=== PATIENT | male | born 1945 | race Caucasian/White ===

== ENCOUNTER 2019-06-01 15:22 | Inpatient (IN) ==
[2019-06-01 16:05] LABS: INR 1.5; Prothrombin Time 16.7 Seconds (9.4-12.1)
[2019-06-01] MEDS ORDERED: Aspirin 81 MG TAB.CHEW PO ONE (16:07)
[2019-06-01 16:08] LABS: Activated Partial Thrombo Time 45.3 Seconds (26.0-36.0)
[2019-06-01 16:19] LABS: Basophils # 0.1 K/mcL (0.0-0.2); Basophils % 0.9 %; Eosinophils # 0.2 K/mcL (0.0-0.6); Eosinophils % 3.4 %; Hematocrit 39.7 % (37.5-50.1); Hemoglobin 14.2 g/dL (12.9-16.9); Immature Granulocytes % 0.6 % (0-4); Lymphocytes # 2.1 K/mcL (0.6-4.6); Lymphocytes % 31.2 %; Mean Corpuscular HGB Conc 35.8 g/dL (31.6-35.5); Mean Corpuscular Hemoglobin 33.4 pg (28.0-33.3); Mean Corpuscular Volume 93.4 fL (83.0-100.0); Monocytes # 0.6 K/mcL (0.0-1.3); Monocytes % 8.3 %; Neutrophils # 3.7 K/mcL (1.6-8.9); Platelet Count 163 K/mcL (140-400); Red Blood Count 4.25 M/mcL (4.19-5.50); Red Cell Distribution Width 11.9 % (11.5-14.5); Segmented Neutrophils % 55.6 %; White Blood Count 6.7 K/mcL (4.3-11.1)
[2019-06-01 16:22] LABS: BUN/Creatinine Ratio 14 (6-26); Blood Urea Nitrogen 13 mg/dL (8-23); Calcium 9.5 mg/dL (8.6-10.3); Carbon Dioxide 23 mEq/L (23-29); Chloride 101 mEq/L (98-107); Glucose 93 mg/dL (70-105); Osmolality,Calculated 282 (280-300); Sodium 136 mEq/L (136-145); Troponin I 0.06 ng/mL (< 0.04); eGFR For African Americans > 60 (> 60); eGFR For Non-African Americans > 60 (> 60)
[2019-06-01] MEDS ORDERED: Nitroglycerin 1 INCH/GM PACKET TP ONE (17:00)
[2019-06-01] MEDS ORDERED: Naloxone 0.4 MG/ML INJ IVP PRN (17:03)
[2019-06-01] MEDS ORDERED: Ondansetron ODT 4 MG TAB.RAPDIS SL PRN (17:03)
[2019-06-01] MEDS: ALPRAZolam 0.5 MG TABLET PO PRN (22:47)
[2019-06-01] MEDS: Apixaban 5 MG TABLET PO SCH (22:47)
[2019-06-02 05:40] LABS: Basophils % 0.6 %; Eosinophils # 0.4 K/mcL (0.0-0.6); Eosinophils % 5.9 %; Hematocrit 37.9 % (37.5-50.1); Immature Granulocytes % 0.8 % (0-4); Lymphocytes # 1.8 K/mcL (0.6-4.6); Lymphocytes % 28.8 %; Mean Corpuscular HGB Conc 36.9 g/dL (31.6-35.5); Mean Platelet Volume 10.1 fL (9.4-12.4); Monocytes # 0.6 K/mcL (0.0-1.3); Monocytes % 9.5 %; Neutrophils # 3.4 K/mcL (1.6-8.9); Platelet Count 155 K/mcL (140-400); Red Blood Count 4.12 M/mcL (4.19-5.50); Red Cell Distribution Width 11.9 % (11.5-14.5); Segmented Neutrophils % 54.4 %; White Blood Count 6.3 K/mcL (4.3-11.1)
[2019-06-02 06:07] LABS: Troponin I 0.07 ng/mL (< 0.04)
[2019-06-02 06:18] LABS: BUN/Creatinine Ratio 13 (6-26); Blood Urea Nitrogen 12 mg/dL (8-23); Calcium 9.4 mg/dL (8.6-10.3); Carbon Dioxide 24 mEq/L (23-29); Chloride 102 mEq/L (98-107); Glucose 85 mg/dL (70-105); Osmolality,Calculated 285 (280-300); Sodium 138 mEq/L (136-145); eGFR For African Americans > 60 (> 60); eGFR For Non-African Americans > 60 (> 60)
[2019-06-02] MEDS ORDERED: Perflutren Lipid Microsphere 1.3 ML in 0.9 % Sodium Chloride 8.7 ML IVP ONE (09:40)
[2019-06-02] MEDS: Apixaban 5 MG TABLET PO SCH (10:23)
[2019-06-02] MEDS ORDERED: *HR* Heparin 5,000 UNIT/ML VIAL IVP PRN ×2 (12:45)
[2019-06-02] MEDS: Metoprolol XL (24 HR) Succ 50 MG TAB.ER.24H PO SCH (13:36)
[2019-06-02] MEDS: Aspirin 81 MG TAB.CHEW PO SCH (13:36)
[2019-06-02 13:45] LABS: Hematocrit 39.3 % (37.5-50.1); Mean Corpuscular HGB Conc 35.6 g/dL (31.6-35.5); Mean Corpuscular Hemoglobin 34.4 pg (28.0-33.3); Mean Corpuscular Volume 96.6 fL (83.0-100.0); Mean Platelet Volume 10.1 fL (9.4-12.4); Platelet Count 138 K/mcL (140-400); Red Blood Count 4.07 M/mcL (4.19-5.50); Red Cell Distribution Width 11.9 % (11.5-14.5); White Blood Count 6.1 K/mcL (4.3-11.1)
[2019-06-02 13:55] LABS: INR 1.7; Prothrombin Time 19.2 Seconds (9.4-12.1)
[2019-06-02 13:58] LABS: Heparin anti-factor XA UFH 1.65 IU/mL (0.30-0.70)
[2019-06-02 14:16] LABS: Activated Partial Thrombo Time 50.8 Seconds (26.0-36.0)
[2019-06-02] MEDS ORDERED: Heparin 25,000 UNIT/250 ML D5W 25,000 UNIT/250 ML IV.SOLN IVC SCH (22:00)
[2019-06-02] MEDS: Ranolazine 500 MG TAB.ER.12H PO SCH (22:20)
[2019-06-02] MEDS: ALPRAZolam 0.5 MG TABLET PO PRN (22:51)
[2019-06-03 05:19] LABS: Basophils % 0.6 %; Eosinophils # 0.4 K/mcL (0.0-0.6); Eosinophils % 5.5 %; Hematocrit 40.1 % (37.5-50.1); Hemoglobin 14.4 g/dL (12.9-16.9); Immature Granulocytes % 0.4 % (0-4); Lymphocytes # 2.2 K/mcL (0.6-4.6); Lymphocytes % 32.8 %; Mean Corpuscular HGB Conc 35.9 g/dL (31.6-35.5); Mean Corpuscular Hemoglobin 33.6 pg (28.0-33.3); Mean Corpuscular Volume 93.7 fL (83.0-100.0); Mean Platelet Volume 9.9 fL (9.4-12.4); Monocytes # 0.7 K/mcL (0.0-1.3); Neutrophils # 3.4 K/mcL (1.6-8.9); Platelet Count 151 K/mcL (140-400); Red Blood Count 4.28 M/mcL (4.19-5.50); Segmented Neutrophils % 50.7 %; White Blood Count 6.7 K/mcL (4.3-11.1)
[2019-06-03 05:39] LABS: BUN/Creatinine Ratio 15 (6-26); Blood Urea Nitrogen 14 mg/dL (8-23); Calcium 9.1 mg/dL (8.6-10.3); Carbon Dioxide 26 mEq/L (23-29); Chloride 103 mEq/L (98-107); Glucose 97 mg/dL (70-105); Osmolality,Calculated 286 (280-300); Potassium 3.9 mEq/L (3.5-5.1); Sodium 138 mEq/L (136-145); Troponin I 0.06 ng/mL (< 0.04); eGFR For African Americans > 60 (> 60); eGFR For Non-African Americans > 60 (> 60)
[2019-06-03] MEDS: Ranolazine 500 MG TAB.ER.12H PO SCH ×2 (08:33→22:08)
[2019-06-03] MEDS: Isosorbide MONOnitrate (24 HR) 30 MG TAB.ER.24H PO SCH (08:33)
[2019-06-03] MEDS: Aspirin 81 MG TAB.CHEW PO SCH (08:33)
[2019-06-03] MEDS: Metoprolol XL (24 HR) Succ 50 MG TAB.ER.24H PO SCH (08:33)
[2019-06-03] MEDS ORDERED: *HR* Heparin 10,000 UNIT/10 ML VIAL ONE ×3 (10:44→12:00)
[2019-06-03] MEDS ORDERED: Heparin 1,000 UNITS/500 mL 500 ML ONE ×2 (10:45→11:17)
[2019-06-03] MEDS ORDERED: ISOVUE-370 200 ML INFUS..BTL ONE ×2 (10:45→11:17)
[2019-06-03] MEDS ORDERED: 0.9 % Sodium Chloride 1,000 ML ONE ×4 (10:45→11:17)
[2019-06-03] MEDS ORDERED: Nitroglycerin 1,000 MCG/10 ML VIAL IV ONE ×2 (10:45→11:17)
[2019-06-03] MEDS ORDERED: *HR* Midazolam HCl 2 MG/2 ML VIAL ONE (11:38)
[2019-06-03] MEDS ORDERED: Heparin 1,000 UNITS/500 mL 0 ML ONE (12:03)
[2019-06-03] MEDS ORDERED: Acetaminophen 325 MG TABLET PO PRN (12:38)
[2019-06-03] MEDS ORDERED: Apixaban 5 MG TABLET PO SCH (21:00)
[2019-06-03] MEDS: Apixaban 5 MG TABLET PO SCH (22:08)
[2019-06-03] MEDS: ALPRAZolam 0.5 MG TABLET PO PRN (23:18)
[2019-06-04 04:19] LABS: Basophils % 0.5 %; Eosinophils # 0.2 K/mcL (0.0-0.6); Eosinophils % 3.8 %; Hematocrit 37.4 % (37.5-50.1); Hemoglobin 13.5 g/dL (12.9-16.9); Immature Granulocytes % 0.7 % (0-4); Lymphocytes # 1.7 K/mcL (0.6-4.6); Lymphocytes % 27.5 %; Mean Corpuscular HGB Conc 36.1 g/dL (31.6-35.5); Mean Corpuscular Hemoglobin 33.7 pg (28.0-33.3); Mean Corpuscular Volume 93.3 fL (83.0-100.0); Monocytes # 0.6 K/mcL (0.0-1.3); Monocytes % 10.3 %; Neutrophils # 3.5 K/mcL (1.6-8.9); Platelet Count 141 K/mcL (140-400); Red Blood Count 4.01 M/mcL (4.19-5.50); Red Cell Distribution Width 11.9 % (11.5-14.5); Segmented Neutrophils % 57.2 %; White Blood Count 6.1 K/mcL (4.3-11.1)
[2019-06-04 04:45] LABS: BUN/Creatinine Ratio 17 (6-26); Blood Urea Nitrogen 16 mg/dL (8-23); Carbon Dioxide 24 mEq/L (23-29); Chloride 105 mEq/L (98-107); Glucose 83 mg/dL (70-105); Osmolality,Calculated 280 (280-300); Sodium 135 mEq/L (136-145); eGFR For African Americans > 60 (> 60); eGFR For Non-African Americans > 60 (> 60)
[2019-06-04] MEDS: Metoprolol XL (24 HR) Succ 50 MG TAB.ER.24H PO SCH (08:52)
[2019-06-04] MEDS: Aspirin 81 MG TAB.CHEW PO SCH (08:52)
[2019-06-04] MEDS: Ranolazine 500 MG TAB.ER.12H PO SCH (08:52)
[2019-06-04] MEDS: Apixaban 5 MG TABLET PO SCH (08:53)
[2019-06-04] MEDS: Isosorbide MONOnitrate (24 HR) 30 MG TAB.ER.24H PO SCH (08:55)
[2019-06-04 10:49] VITALS: BP 107/67
[2019-06-05] MEDS ORDERED: Isosorbide MONOnitrate (24 HR) 30 MG TAB.ER.24H PO SCH (09:00)
== END 2019-06-04 11:36 | disposition home or self-care (01) | DRG 247 ==
LOC: 3BNU 15:22 → EMEROOARM 15:22 → 3BNU 21:30 → 2NENU 06-02 15:37
PROVIDERS: ADMIT Student in an Organized Health Care Education/Training Program; ATTEND Student in an Organized Health Care Education/Training Program

== ENCOUNTER 2019-06-08 13:37 | Observation (INO) ==
[2019-06-08] MEDS ORDERED: Isovue-370 500 ML BOTTLE IVP ONE (13:48)
[2019-06-08 14:18] LABS: Basophils % 0.6 %; Eosinophils # 0.2 K/mcL (0.0-0.6); Eosinophils % 3.4 %; Hematocrit 34.1 % (37.5-50.1); Hemoglobin 12.5 g/dL (12.9-16.9); Lymphocytes # 1.6 K/mcL (0.6-4.6); Lymphocytes % 31.4 %; Mean Corpuscular HGB Conc 36.7 g/dL (31.6-35.5); Mean Corpuscular Hemoglobin 33.9 pg (28.0-33.3); Mean Corpuscular Volume 92.4 fL (83.0-100.0); Mean Platelet Volume 10.2 fL (9.4-12.4); Monocytes # 0.4 K/mcL (0.0-1.3); Monocytes % 8.5 %; Neutrophils # 2.7 K/mcL (1.6-8.9); Platelet Count 156 K/mcL (140-400); Red Blood Count 3.69 M/mcL (4.19-5.50); Red Cell Distribution Width 11.9 % (11.5-14.5); Segmented Neutrophils % 55.1 %; White Blood Count 4.9 K/mcL (4.3-11.1)
[2019-06-08] MEDS ORDERED: Ondansetron 4 MG/2 ML VIAL IVP PRN (17:40)
[2019-06-08] MEDS ORDERED: Nitroglycerin 0.4 MG TAB.SUBL SL PRN (17:40)
[2019-06-08] MEDS: Apixaban 5 MG TABLET PO SCH (21:44)
[2019-06-08] MEDS: (Omega-3/Dha/Epa/Fish Oil [Fish Oil 1,000 Mg Softgel]) PO SCH (21:45)
[2019-06-08] MEDS: Ranolazine 500 MG TAB.ER.12H PO SCH (21:45)
[2019-06-08] MEDS: Melatonin 3 MG TABLET PO SCH (23:52)
[2019-06-08] MEDS: ALPRAZolam 0.5 MG TABLET PO PRN (23:52)
[2019-06-09 03:27] LABS: Basophils # 0.1 K/mcL (0.0-0.2); Basophils % 0.8 %; Eosinophils # 0.3 K/mcL (0.0-0.6); Eosinophils % 5.1 %; Hematocrit 36.3 % (37.5-50.1); Hemoglobin 13.1 g/dL (12.9-16.9); Immature Granulocytes % 0.7 % (0-4); Lymphocytes # 1.8 K/mcL (0.6-4.6); Lymphocytes % 30.2 %; Mean Corpuscular HGB Conc 36.1 g/dL (31.6-35.5); Mean Corpuscular Hemoglobin 34.2 pg (28.0-33.3); Mean Corpuscular Volume 94.8 fL (83.0-100.0); Mean Platelet Volume 10.3 fL (9.4-12.4); Monocytes # 0.6 K/mcL (0.0-1.3); Monocytes % 9.3 %; Neutrophils # 3.3 K/mcL (1.6-8.9); Platelet Count 154 K/mcL (140-400); Red Blood Count 3.83 M/mcL (4.19-5.50); Segmented Neutrophils % 53.9 %
[2019-06-09 03:45] LABS: Alanine Aminotransferase 26 Units/L (7-52); Albumin/Globulin Ratio 1.6 (1.1-2.2); Alkaline Phosphatase 65 Units/L (34-104); Aspartate Amino Transferase 20 Units/L (13-39); BUN/Creatinine Ratio 11 (6-26); Bilirubin,Total 0.8 mg/dL (0.3-1.0); Blood Urea Nitrogen 10 mg/dL (8-23); Calcium 9.1 mg/dL (8.6-10.3); Carbon Dioxide 25 mEq/L (23-29); Chloride 102 mEq/L (98-107); Globulin 2.5 g/dL (2.4-3.5); Glucose 95 mg/dL (70-105); Magnesium 2.2 mg/dL (1.6-2.6); Osmolality,Calculated 279 (280-300); Sodium 135 mEq/L (136-145); Total Protein 6.5 g/dL (6.4-8.9); eGFR For African Americans > 60 (> 60); eGFR For Non-African Americans > 60 (> 60)
[2019-06-09 03:46] LABS: INR 1.8
[2019-06-09] MEDS: Aspirin 81 MG TAB.CHEW PO SCH (08:06)
[2019-06-09] MEDS: Metoprolol XL (24 HR) Succ 50 MG TAB.ER.24H PO SCH (08:07)
[2019-06-09] MEDS: Ranolazine 500 MG TAB.ER.12H PO SCH ×2 (08:07→20:31)
[2019-06-09] MEDS: (Omega-3/Dha/Epa/Fish Oil [Fish Oil 1,000 Mg Softgel]) PO SCH ×2 (08:08→15:19)
[2019-06-09] MEDS ORDERED: Isosorbide MONOnitrate (24 HR) 60 MG TAB.ER.24H PO SCH (09:00)
[2019-06-09] MEDS: Apixaban 5 MG TABLET PO SCH ×2 (10:13→20:31)
[2019-06-09] MEDS ORDERED: Isosorbide MONOnitrate (24 HR) 60 MG TAB.ER.24H PO ONE (10:43)
[2019-06-09] MEDS: Acetaminophen 325 MG TABLET PO PRN (20:31)
[2019-06-09] MEDS: Melatonin 3 MG TABLET PO SCH (20:32)
[2019-06-09] MEDS: ALPRAZolam 0.5 MG TABLET PO PRN (23:22)
[2019-06-10] MEDS: Metoprolol XL (24 HR) Succ 50 MG TAB.ER.24H PO SCH ×2 (08:18→09:32)
[2019-06-10] MEDS: Aspirin 81 MG TAB.CHEW PO SCH (08:20)
[2019-06-10] MEDS: Apixaban 5 MG TABLET PO SCH ×2 (08:20→20:29)
[2019-06-10] MEDS: Ranolazine 500 MG TAB.ER.12H PO SCH ×2 (08:20→20:30)
[2019-06-10] MEDS ORDERED: Isosorbide MONOnitrate (24 HR) 30 MG TAB.ER.24H PO SCH (09:00)
[2019-06-10] MEDS: Isosorbide MONOnitrate (24 HR) 30 MG TAB.ER.24H PO SCH (20:29)
[2019-06-10] MEDS: Melatonin 3 MG TABLET PO SCH (20:29)
[2019-06-10] MEDS: Acetaminophen 325 MG TABLET PO PRN (21:30)
[2019-06-10] MEDS: ALPRAZolam 0.5 MG TABLET PO PRN (23:43)
[2019-06-11] MEDS: Metoprolol XL (24 HR) Succ 50 MG TAB.ER.24H PO SCH (08:59)
[2019-06-11] MEDS: Aspirin 81 MG TAB.CHEW PO SCH (08:59)
[2019-06-11] MEDS: Apixaban 5 MG TABLET PO SCH (08:59)
[2019-06-11] MEDS: Ranolazine 500 MG TAB.ER.12H PO SCH (09:00)
[2019-06-11] MEDS: Isosorbide MONOnitrate (24 HR) 30 MG TAB.ER.24H PO SCH (09:01)
[2019-06-11 10:39] VITALS: BP 106/64
== END 2019-06-11 12:23 | disposition home or self-care (01) ==
LOC: EMEROOARM 13:37 → 2NENU 13:37 → SUATTDRO 17:43 → 2NENU 19:53
PROVIDERS: ADMIT Pharmacist; ATTEND Internal Medicine

== ENCOUNTER 2019-11-30 18:55 | Inpatient (IN) ==
[2019-11-30 21:09] LABS: Basophils % 0.4 %; Eosinophils # 0.2 K/mcL (0.0-0.6); Eosinophils % 2.7 %; Hematocrit 33.7 % (37.5-50.1); Hemoglobin 11.7 g/dL (12.9-16.9); Immature Granulocytes % 0.4 % (0-4); Lymphocytes # 1.1 K/mcL (0.6-4.6); Lymphocytes % 20.1 %; Mean Corpuscular HGB Conc 34.7 g/dL (31.6-35.5); Mean Corpuscular Hemoglobin 33.8 pg (28.0-33.3); Mean Corpuscular Volume 97.4 fL (83.0-100.0); Mean Platelet Volume 9.9 fL (9.4-12.4); Monocytes # 0.5 K/mcL (0.0-1.3); Monocytes % 8.6 %; Neutrophils # 3.8 K/mcL (1.6-8.9); Platelet Count 159 K/mcL (140-400); Red Blood Count 3.46 M/mcL (4.19-5.50); Red Cell Distribution Width 11.8 % (11.5-14.5); Segmented Neutrophils % 67.8 %; White Blood Count 5.6 K/mcL (4.3-11.1)
[2019-11-30 21:25] LABS: BUN/Creatinine Ratio 13 (6-26); Blood Urea Nitrogen 15 mg/dL (8-23); Calcium 9.4 mg/dL (8.6-10.3); Carbon Dioxide 26 mEq/L (23-29); Chloride 104 mEq/L (98-107); Glucose 96 mg/dL (70-105); Osmolality,Calculated 287 (280-300); Potassium 4.1 mEq/L (3.5-5.1); Sodium 138 mEq/L (136-145); eGFR For African Americans > 60 (> 60); eGFR For Non-African Americans > 60 (> 60)
[2019-11-30] MEDS ORDERED: Ondansetron 4 MG/2 ML VIAL IVP PRN (21:55)
[2019-11-30] MEDS ORDERED: Naloxone 0.4 MG/ML INJ IVP PRN (21:55)
[2019-11-30] MEDS: 0.9 % Sodium Chloride 1,000 ML IVC SCH (22:08)
[2019-11-30] MEDS: ALPRAZolam 0.5 MG TABLET PO PRN (22:39)
[2019-11-30] MEDS: Melatonin 3 MG TABLET PO SCH (22:39)
[2019-12-01 01:31] LABS: Basophils % 0.2 %; Eosinophils # 0.2 K/mcL (0.0-0.6); Eosinophils % 2.9 %; Hematocrit 31.1 % (37.5-50.1); Hemoglobin 10.8 g/dL (12.9-16.9); Immature Granulocytes % 0.4 % (0-4); Lymphocytes # 1.1 K/mcL (0.6-4.6); Lymphocytes % 20.6 %; Mean Corpuscular HGB Conc 34.7 g/dL (31.6-35.5); Mean Corpuscular Hemoglobin 33.1 pg (28.0-33.3); Mean Corpuscular Volume 95.4 fL (83.0-100.0); Mean Platelet Volume 9.9 fL (9.4-12.4); Monocytes # 0.6 K/mcL (0.0-1.3); Monocytes % 10.5 %; Neutrophils # 3.6 K/mcL (1.6-8.9); Platelet Count 134 K/mcL (140-400); Red Blood Count 3.26 M/mcL (4.19-5.50); Red Cell Distribution Width 11.7 % (11.5-14.5); Segmented Neutrophils % 65.4 %; White Blood Count 5.4 K/mcL (4.3-11.1)
[2019-12-01 01:32] LABS: INR 1.6; Prothrombin Time 18.5 Seconds (9.4-12.1)
[2019-12-01 01:45] LABS: BUN/Creatinine Ratio 13 (6-26); Blood Urea Nitrogen 14 mg/dL (8-23); Calcium 8.8 mg/dL (8.6-10.3); Carbon Dioxide 26 mEq/L (23-29); Chloride 107 mEq/L (98-107); Glucose 96 mg/dL (70-105); Magnesium 2.1 mg/dL (1.6-2.6); Osmolality,Calculated 288 (280-300); Phosphorous 2.8 mg/dL (2.7-4.5); Potassium 3.5 mEq/L (3.5-5.1); Sodium 139 mEq/L (136-145); eGFR For African Americans > 60 (> 60); eGFR For Non-African Americans > 60 (> 60)
[2019-12-01] MEDS: Acetaminophen 325 MG TABLET PO PRN ×3 (04:03→20:45)
[2019-12-01] MEDS: Metoprolol XL (24 HR) Succ 50 MG TAB.ER.24H PO SCH (08:39)
[2019-12-01] MEDS: Ranolazine 500 MG TAB.ER.12H PO SCH ×2 (08:39→20:33)
[2019-12-01] MEDS: 0.9 % Sodium Chloride 1,000 ML IVC SCH (08:39)
[2019-12-01] MEDS: Isosorbide MONOnitrate (24 HR) 30 MG TAB.ER.24H PO SCH (20:33)
[2019-12-01] MEDS: Melatonin 3 MG TABLET PO SCH (22:49)
[2019-12-01] MEDS: ALPRAZolam 0.5 MG TABLET PO PRN (22:50)
[2019-12-02 02:39] LABS: Hematocrit 30.1 % (37.5-50.1); Hemoglobin 10.1 g/dL (12.9-16.9); Mean Corpuscular HGB Conc 33.6 g/dL (31.6-35.5); Mean Corpuscular Hemoglobin 32.6 pg (28.0-33.3); Mean Corpuscular Volume 97.1 fL (83.0-100.0); Mean Platelet Volume 9.9 fL (9.4-12.4); Platelet Count 137 K/mcL (140-400); Red Cell Distribution Width 11.9 % (11.5-14.5); White Blood Count 5.4 K/mcL (4.3-11.1)
[2019-12-02 02:55] LABS: BUN/Creatinine Ratio 12 (6-26); Blood Urea Nitrogen 14 mg/dL (8-23); Calcium 8.6 mg/dL (8.6-10.3); Carbon Dioxide 23 mEq/L (23-29); Chloride 109 mEq/L (98-107); Glucose 88 mg/dL (70-105); Osmolality,Calculated 290 (280-300); Potassium 3.5 mEq/L (3.5-5.1); Sodium 140 mEq/L (136-145); eGFR For African Americans > 60 (> 60); eGFR For Non-African Americans > 60 (> 60)
[2019-12-02] MEDS: Metoprolol XL (24 HR) Succ 50 MG TAB.ER.24H PO SCH (08:40)
[2019-12-02] MEDS: Ranolazine 500 MG TAB.ER.12H PO SCH ×2 (08:40→20:20)
[2019-12-02] MEDS: Isosorbide MONOnitrate (24 HR) 30 MG TAB.ER.24H PO SCH (20:19)
[2019-12-02] MEDS: Melatonin 3 MG TABLET PO SCH (22:47)
[2019-12-02] MEDS: ALPRAZolam 0.5 MG TABLET PO PRN (22:47)
[2019-12-02] MEDS: Acetaminophen 325 MG TABLET PO PRN (22:51)
[2019-12-03] MEDS: Metoprolol XL (24 HR) Succ 50 MG TAB.ER.24H PO SCH (08:14)
[2019-12-03] MEDS: Ranolazine 500 MG TAB.ER.12H PO SCH ×2 (08:14→20:03)
[2019-12-03 09:56] LABS: Hemoglobin 10.2 g/dL (12.9-16.9); Mean Platelet Volume 10.3 fL (9.4-12.4); Platelet Count 126 K/mcL (140-400); Red Cell Distribution Width 11.7 % (11.5-14.5)
[2019-12-03 10:10] LABS: BUN/Creatinine Ratio 18 (6-26); Blood Urea Nitrogen 21 mg/dL (8-23); Calcium 9.1 mg/dL (8.6-10.3); Carbon Dioxide 26 mEq/L (23-29); Chloride 107 mEq/L (98-107); Glucose 86 mg/dL (70-105); Osmolality,Calculated 290 (280-300); Potassium 3.5 mEq/L (3.5-5.1); Sodium 139 mEq/L (136-145); eGFR For African Americans > 60 (> 60); eGFR For Non-African Americans 59 (> 60)
[2019-12-03 10:24] LABS: Troponin I < 0.03 ng/mL (< 0.04)
[2019-12-03 10:37] LABS: Thyroid Stimulating Hormone 4.012 mcIU/mL (0.340-5.600)
[2019-12-03 12:10] LABS: Bacteria,Urine Few per hpf (None-Few); Bilirubin,Urine Negative (Negative); Blood,Urine Large (Negative); Clarity,Urine Clear (Clear); Color,Urine Light-Yellow (Yellow); Glucose,Urine (UA) Normal (Normal); Ketones,Urine Negative (Negative); Leukocyte Esterase,Urine Small (Negative); Mucus,Urine Few per lpf (None-Few); Nitrite,Urine Negative (Negative); PH,Urine 6.5 pH Units (5.0-8.0); Protein,Urine 30 mg/dL (Neg-Trace); RBC,Urine 30-50 per hpf (0-3); Specific Gravity,Urine 1.013 (1.010-1.025); Squamous Epithelial Cell,Urine Few per hpf (None-Few); Urobilinogen,Urine Normal (Normal); WBC,Urine 15-30 per hpf (0-3)
[2019-12-03] MEDS ORDERED: Isovue-300 50ML VIAL ONE (12:48)
[2019-12-03] MEDS ORDERED: cefTRIAXone 1,000 MG in 0.9 % Sodium Chloride Mini Bag 100 ML IVPB ONE (13:00)
[2019-12-03] MEDS ORDERED: Lidocaine -MPF 2% 2 ML VIAL ONE (13:34)
[2019-12-03] MEDS ORDERED: *HR* Propofol 200 MG/20 ML VIAL IVP ONE (13:34)
[2019-12-03] MEDS ORDERED: *HR* FentaNYL (PF) 100 MCG/2 ML VIAL ONE (13:34)
[2019-12-03] MEDS ORDERED: Dexamethasone 4 MG/ML VIAL ONE (14:03)
[2019-12-03] MEDS ORDERED: Ondansetron 4 MG/2 ML VIAL ONE (14:03)
[2019-12-03] MEDS ORDERED: Ondansetron 4 MG/2 ML VIAL IVP PRN (15:34)
[2019-12-03] MEDS ORDERED: Acetaminophen 325 MG TABLET PO PRN (15:34)
[2019-12-03] MEDS ORDERED: Naloxone 0.4 MG/ML INJ IVP PRN (15:34)
[2019-12-03] MEDS ORDERED: ALPRAZolam 0.5 MG TABLET PO PRN (15:34)
[2019-12-03] MEDS: *HR* HYDROcodone/Acet 5/325 mg TABLET PO PRN ×2 (15:54→20:04)
[2019-12-03] MEDS ORDERED: Isosorbide MONOnitrate (24 HR) 30 MG TAB.ER.24H PO SCH (21:00)
[2019-12-03] MEDS ORDERED: Melatonin 3 MG TABLET PO SCH (21:00)
[2019-12-03] MEDS ORDERED: *HR* OxyCODONE Immed Rel 5 MG TABLET PO ONE (22:04)
[2019-12-04 07:33] VITALS: BP 99/57
[2019-12-04] MEDS: Ranolazine 500 MG TAB.ER.12H PO SCH (07:49)
[2019-12-04] MEDS ORDERED: Metoprolol XL (24 HR) Succ 50 MG TAB.ER.24H PO SCH (09:00)
== END 2019-12-04 13:00 | disposition home or self-care (01) | DRG 657 ==
LOC: 3BNU 18:55 → EMEROOARM 18:55 → SUATTDRO 21:07 → 3BNU 21:43
PROVIDERS: ADMIT Student in an Organized Health Care Education/Training Program; ATTEND Nurse Practitioner Adult Health

== ENCOUNTER 2020-01-10 06:02 | Inpatient (IN) ==
[2020-01-10] MEDS ORDERED: CeFAZolin Syr 2,000MG/20 ML 2,000 MG/20 ML SYRINGE IVPB ONE (06:21)
[2020-01-10] MEDS ORDERED: Famotidine 20 MG/2 ML VIAL IVP ONE (06:30)
[2020-01-10] MEDS ORDERED: Ringers Solution, Lactated 1,000 ML IVC SCH (06:30)
[2020-01-10] MEDS ORDERED: *HR* Promethazine 25 MG/ML VIAL IVP PRN (07:13)
[2020-01-10] MEDS ORDERED: Aspirin 81 MG TAB.CHEW PO ONE (07:13)
[2020-01-10] MEDS ORDERED: Ondansetron 4 MG/2 ML VIAL IVP PRN ×2 (07:13→14:48)
[2020-01-10] MEDS ORDERED: *HR* Labetalol 20 MG/4 ML SYRINGE IVP PRN (07:13)
[2020-01-10] MEDS ORDERED: Ondansetron 4 MG/2 ML VIAL ONE (07:15)
[2020-01-10] MEDS ORDERED: *HR* Succinylcholine 200 MG/10 ML VIAL IVP ONE (07:15)
[2020-01-10] MEDS ORDERED: *HR* Rocuronium Bromide 50 MG/5 ML VIAL ONE ×3 (07:15→11:14)
[2020-01-10] MEDS ORDERED: Dexamethasone 4 MG/ML VIAL ONE (07:15)
[2020-01-10] MEDS ORDERED: Lidocaine -MPF 2% 2 ML VIAL ONE ×2 (07:15→07:18)
[2020-01-10] MEDS ORDERED: *HR* FentaNYL (PF) 100 MCG/2 ML VIAL ONE ×2 (07:16→11:02)
[2020-01-10] MEDS ORDERED: *HR* Propofol 200 MG/20 ML VIAL IVP ONE (07:16)
[2020-01-10] MEDS ORDERED: Lidocaine HCL 4 ML Topical Solution (Laryng-O-Jet Kit Sterile Pak) TP ONE (07:21)
[2020-01-10] MEDS ORDERED: Heparin 1,000 UNITS/500 mL 500 ML ONE (07:30)
[2020-01-10] MEDS ORDERED: Albumin Human 5% 25.0 GM/500 ML IV.SOLN ONE (08:10)
[2020-01-10] MEDS ORDERED: *HR* PHENYLEPHRINE 1,000 MCG/10 ML SYRINGE IVP ONE (09:06)
[2020-01-10] MEDS: *HR* HYDROmorphone (PF) 1 MG/ML SYRINGE IVP PRN ×4 (13:12→13:49)
[2020-01-10] MEDS ORDERED: EPHEDrine 50 MG/ML VIAL ONE (13:36)
[2020-01-10] MEDS ORDERED: Acetaminophen 325 MG TABLET PO PRN (14:48)
[2020-01-10] MEDS ORDERED: Naloxone 0.4 MG/ML INJ IVP PRN (14:48)
[2020-01-10] MEDS: Nitroglycerin 0.4 MG TAB.SUBL SL PRN ×2 (15:17→15:51)
[2020-01-10] MEDS: *HR* OxyCODONE/APAP 5/325 TABLET PO PRN ×2 (16:13→21:26)
[2020-01-10] MEDS: 0.9 % Sodium Chloride 1,000 ML IVC SCH (16:13)
[2020-01-10] MEDS: CeFAZolin 2 GM/120 ML BAG IVPB SCH (16:14)
[2020-01-10] MEDS ORDERED: Perflutren Lipid Microsphere 1.3 ML in 0.9 % Sodium Chloride 8.7 ML IVP PRN (18:21)
[2020-01-10] MEDS: *HR* Heparin 5,000 UNIT/ML VIAL SQ SCH (18:54)
[2020-01-10] MEDS: Nitroglycerin 0.4 MG PATCH.TD24 TD SCH (18:55)
[2020-01-10] MEDS: Melatonin 3 MG TABLET PO SCH (21:23)
[2020-01-10] MEDS: Isosorbide MONOnitrate (24 HR) 30 MG TAB.ER.24H PO SCH (21:23)
[2020-01-10] MEDS: Ranolazine 500 MG TAB.ER.12H PO SCH (21:24)
[2020-01-10] MEDS: ALPRAZolam 0.5 MG TABLET PO PRN (21:26)
[2020-01-11] MEDS: 0.9 % Sodium Chloride 1,000 ML IVC SCH ×2 (00:40→21:19)
[2020-01-11] MEDS: CeFAZolin 2 GM/120 ML BAG IVPB SCH (00:40)
[2020-01-11 02:34] LABS: Basophils % 0.1 %; Hematocrit 28.7 % (37.5-50.1); Hemoglobin 9.1 g/dL (12.9-16.9); Immature Granulocytes % 0.2 % (0-4); Lymphocytes # 0.6 K/mcL (0.6-4.6); Mean Corpuscular HGB Conc 31.7 g/dL (31.6-35.5); Mean Corpuscular Hemoglobin 32.6 pg (28.0-33.3); Mean Corpuscular Volume 102.9 fL (83.0-100.0); Mean Platelet Volume 10.5 fL (9.4-12.4); Monocytes # 0.6 K/mcL (0.0-1.3); Monocytes % 7.3 %; Platelet Count 140 K/mcL (140-400); Red Blood Count 2.79 M/mcL (4.19-5.50); Red Cell Distribution Width 13.2 % (11.5-14.5); Segmented Neutrophils % 85.4 %; White Blood Count 8.2 K/mcL (4.3-11.1)
[2020-01-11 02:46] LABS: BUN/Creatinine Ratio 13 (6-26); Blood Urea Nitrogen 17 mg/dL (8-23); Calcium 8.1 mg/dL (8.6-10.3); Carbon Dioxide 24 mEq/L (23-29); Chloride 105 mEq/L (98-107); Glucose 121 mg/dL (70-105); Osmolality,Calculated 283 (280-300); Potassium 4.7 mEq/L (3.5-5.1); Sodium 135 mEq/L (136-145); eGFR For African Americans > 60 (> 60); eGFR For Non-African Americans 51 (> 60)
[2020-01-11] MEDS: *HR* Heparin 5,000 UNIT/ML VIAL SQ SCH ×2 (07:12→18:19)
[2020-01-11] MEDS ORDERED: 0.9 % Sodium Chloride 500 ML IVC ONE (08:30)
[2020-01-11] MEDS: Nitroglycerin 0.4 MG PATCH.TD24 TD SCH ×2 (08:45→08:56)
[2020-01-11] MEDS: Aspirin 81 MG TAB.CHEW PO SCH (08:58)
[2020-01-11] MEDS: *HR* OxyCODONE/APAP 5/325 TABLET PO PRN ×2 (08:59→21:14)
[2020-01-11] MEDS: Ranolazine 500 MG TAB.ER.12H PO SCH ×2 (09:00→21:14)
[2020-01-11 12:17] LABS: Hematocrit 29.6 % (37.5-50.1); Hemoglobin 9.2 g/dL (12.9-16.9)
[2020-01-11] MEDS: ALPRAZolam 0.5 MG TABLET PO PRN (21:14)
[2020-01-11] MEDS: Melatonin 3 MG TABLET PO SCH (21:14)
[2020-01-11] MEDS: Isosorbide MONOnitrate (24 HR) 30 MG TAB.ER.24H PO SCH (21:15)
[2020-01-12 05:21] LABS: Hemoglobin 8.5 g/dL (12.9-16.9); Mean Corpuscular HGB Conc 32.7 g/dL (31.6-35.5); Mean Corpuscular Hemoglobin 33.3 pg (28.0-33.3); Mean Platelet Volume 10.4 fL (9.4-12.4); Platelet Count 113 K/mcL (140-400); Red Blood Count 2.55 M/mcL (4.19-5.50); Red Cell Distribution Width 13.3 % (11.5-14.5); White Blood Count 6.3 K/mcL (4.3-11.1)
[2020-01-12 05:40] LABS: BUN/Creatinine Ratio 13 (6-26); Blood Urea Nitrogen 18 mg/dL (8-23); Calcium 8.1 mg/dL (8.6-10.3); Carbon Dioxide 24 mEq/L (23-29); Chloride 107 mEq/L (98-107); Glucose 112 mg/dL (70-105); Osmolality,Calculated 285 (280-300); Potassium 3.9 mEq/L (3.5-5.1); Sodium 136 mEq/L (136-145); eGFR For African Americans > 60 (> 60); eGFR For Non-African Americans 51 (> 60)
[2020-01-12] MEDS: *HR* Heparin 5,000 UNIT/ML VIAL SQ SCH ×2 (05:57→18:01)
[2020-01-12] MEDS: *HR* OxyCODONE/APAP 5/325 TABLET PO PRN ×2 (06:03→21:43)
[2020-01-12] MEDS: 0.9 % Sodium Chloride 1,000 ML IVC SCH ×2 (07:20→07:56)
[2020-01-12] MEDS: Nitroglycerin 0.4 MG PATCH.TD24 TD SCH (07:57)
[2020-01-12] MEDS: Aspirin 81 MG TAB.CHEW PO SCH (09:17)
[2020-01-12] MEDS: Ranolazine 500 MG TAB.ER.12H PO SCH ×2 (09:18→21:44)
[2020-01-12] MEDS ORDERED: Simethicone 80 MG TAB.CHEW PO PRN (09:38)
[2020-01-12] MEDS: Melatonin 3 MG TABLET PO SCH (21:43)
[2020-01-12] MEDS: ALPRAZolam 0.5 MG TABLET PO PRN (21:44)
[2020-01-12] MEDS: Isosorbide MONOnitrate (24 HR) 30 MG TAB.ER.24H PO SCH (21:44)
[2020-01-13 05:58] LABS: BUN/Creatinine Ratio 11 (6-26); Blood Urea Nitrogen 14 mg/dL (8-23); Calcium 8.4 mg/dL (8.6-10.3); Carbon Dioxide 25 mEq/L (23-29); Chloride 105 mEq/L (98-107); Glucose 123 mg/dL (70-105); Hematocrit 25.8 % (37.5-50.1); Hemoglobin 8.4 g/dL (12.9-16.9); Immature Granulocytes % 0.2 % (0-4); Lymphocytes % 18.6 %; Mean Corpuscular HGB Conc 32.6 g/dL (31.6-35.5); Mean Corpuscular Hemoglobin 32.2 pg (28.0-33.3); Mean Corpuscular Volume 98.9 fL (83.0-100.0); Mean Platelet Volume 10.4 fL (9.4-12.4); Osmolality,Calculated 284 (280-300); Platelet Count 119 K/mcL (140-400); Potassium 3.8 mEq/L (3.5-5.1); Red Blood Count 2.61 M/mcL (4.19-5.50); Red Cell Distribution Width 13.3 % (11.5-14.5); Segmented Neutrophils % 67.4 %; Sodium 136 mEq/L (136-145); White Blood Count 5.4 K/mcL (4.3-11.1); eGFR For African Americans > 60 (> 60); eGFR For Non-African Americans 55 (> 60)
[2020-01-13 05:59] LABS: Basophils % 0.4 %; Eosinophils # 0.2 K/mcL (0.0-0.6); Eosinophils % 4.5 %; Monocytes # 0.5 K/mcL (0.0-1.3); Monocytes % 8.9 %; Neutrophils # 3.6 K/mcL (1.6-8.9); Nucleated Red Blood Cells 0.4 /100 WBC (0)
[2020-01-13] MEDS: *HR* Heparin 5,000 UNIT/ML VIAL SQ SCH (06:15)
[2020-01-13] MEDS: Ranolazine 500 MG TAB.ER.12H PO SCH (07:46)
[2020-01-13] MEDS: Aspirin 81 MG TAB.CHEW PO SCH (07:46)
[2020-01-13 10:12] VITALS: BP 97/62
[2020-01-13] MEDS ORDERED: FLU Vac QV 20-21 (6Month+)/PF 0.5 ML SYRINGE IM ONE (10:41)
== END 2020-01-13 12:10 | disposition home or self-care (01) | DRG 657 ==
LOC: SAMDAY 06:02 → 3ANU 14:40
PROVIDERS: ADMIT Urology; ATTEND Urology